=== PATIENT | female | born 1970 | race Asian ===

== ENCOUNTER 2024-02-19 21:05 | Inpatient (IN) | payer BC ==
[~2024-02-19] VITALS: Ht 172.7 cm; Wt 77.1 kg
[2024-02-19 21:24] VITALS: BP 106/63; PULSE 64; RESP 16; TEMP 98.1; O2SAT 99
[2024-02-19 22:12] LABS: BASOPHILS % (AUTO) 1.3 % (0.0-2.0); EOSINOPHILS % (AUTO) 0.2 % (0.0-4.0); HEMATOCRIT 34.9 % (36-48); HEMOGLOBIN 11.4 g/dL (12.0-16.0); LYMPHOCYTES # (AUTO) 0.1 K/uL (2.5-16.5); LYMPHOCYTES % (AUTO) 10.2 % (20.5-51.1); MEAN CORPUSCULAR HEMOGLOBIN 26 pg (27-31); MEAN CORPUSCULAR HGB CONC 33 g/dL (33-37); NEUTROPHILS # (AUTO) 0.6 K/uL (1.8-7.7); NEUTROPHILS % (AUTO) 86.3 % (42.2-75.2); PLATELET COUNT (AUTO) 198 K/uL (140-450); RED BLOOD CELL COUNT(AUTO) 4.47 MIL/uL (4.20-5.40); RED CELL DISTRIBUTION WIDTH 16.2 % (11.6-13.7)
[2024-02-19 22:15] LABS: WHITE BLOOD COUNT (AUTO) 0.7 K/uL (4.8-10.8)
[2024-02-19] MEDS ORDERED: MORPHINE SULFATE 4 MG/ML SYR ONE (22:34)
[2024-02-19 22:37] LABS: ALBUMIN 3.6 g/dL (3.4-5.0); ANION GAP 18.3 (8-16); CALCIUM 8.8 mg/dL (8.5-10.1); CARBON DIOXIDE 22.3 mmol/L (21-32); CREATININE 2.7 mg/dL (0.6-1.3); POTASSIUM 3.6 mmol/L (3.5-5.1); TOTAL BILIRUBIN 4.7 mg/dL (0.0-1.0); TOTAL PROTEIN, SERUM 7.9 g/dL (6.4-8.2)
[2024-02-19] MEDS: MORPHINE SULFATE 4 MG/ML SYR IVP ONE (22:38)
[2024-02-20] VITALS (18 sets, daily range): BP systolic 98–140; BP diastolic 55–94; PULSE 64–87; RESP 12–21; TEMP 97.3–98.4; O2SAT 95–100
[2024-02-20] MEDS ORDERED: PIPERACILLIN/TAZOBACTAM 3.375 GM VIAL IV ONE (00:48)
[2024-02-20] MEDS ORDERED: OMEP40EC23 PO (00:51)
[2024-02-20] MEDS ORDERED: GLIP5TER PO (00:51)
[2024-02-20] MEDS ORDERED: ATOR40TA PO (00:51)
[2024-02-20] MEDS ORDERED: METF-350 PO (00:51)
[2024-02-20] MEDS ORDERED: ISOS10TA9 PO (00:51)
[2024-02-20] MEDS ORDERED: AMLO10TA PO (00:51)
[2024-02-20] MEDS ORDERED: LOSA-272 PO (00:51)
[2024-02-20] MEDS: PIPERACILLIN/TAZOBACTAM 3.375 GM in DEXTROSE 5% 50 ML IV ONE (00:58)
[2024-02-20] MEDS: NACL 0.9% 1,000 ML IV ONE (00:58)
[2024-02-20] MEDS ORDERED: INSULIN LISPRO SLIDING SCALE 100 UNITS/ML VIAL SUBQ PRN (01:15)
[2024-02-20] MEDS ORDERED: MORPHINE SULFATE 2 MG/ML SYR IVP PRN (01:15)
[2024-02-20] MEDS: NACL 0.9% 2,000 ML IV ONE (01:28)
[2024-02-20] MEDS ORDERED: NOREPINEPHRINE 4 MG/4 ML VIAL IV ONE (02:25)
[2024-02-20] MEDS: DEXT 5% / NACL 0.45% 1,000 ML IV SCH (02:27)
[2024-02-20 02:53] LABS: APPEARANCE,URINE HAZY (CLEAR); COLOR,URINE AMBER (YELLOW)
[2024-02-20 02:54] LABS: PROTEIN,URINE 1+ (NEGATIVE); UGLUCOSE NEGATIVE (NEGATIVE)
[2024-02-20 02:55] LABS: BILIRUBIN,URINE NEGATIVE (NEGATIVE); BLOOD, URINE NEGATIVE (NEGATIVE); UROBILINOGEN,URINE 0.4 EU/dL (0.2 - 1)
[2024-02-20] MEDS: NOREPINEPHRINE 8 MG in DEXTROSE 5% 250 ML IV PRN (03:00)
[2024-02-20 03:06] LABS: LEUKOCYTE ESTERASE ,URINE 2+ (NEGATIVE); NITRITE, URINE POSITIVE (NEGATIVE); RBC,URINE 0-5 /HPF (0-5)
[2024-02-20 03:07] LABS: BACTERIA,URINE 10-30 (MOD) /HPF (None Seen); MUCUS,URINE 1+ /LPF (None Seen); SQUAMOUS EPITHELIAL CELL,UR 0-3 (FEW) /LPF (0-3 (FEW))
[2024-02-20 06:06] LABS: BASOPHILS % (AUTO) 0.1 % (0.0-2.0); EOSINOPHILS % (AUTO) 0.3 % (0.0-4.0); HEMATOCRIT 29.8 % (36-48); HEMOGLOBIN 9.8 g/dL (12.0-16.0); LYMPHOCYTES # (AUTO) 0.2 K/uL (2.5-16.5); LYMPHOCYTES % (AUTO) 1.8 % (20.5-51.1); MEAN CORPUSCULAR HEMOGLOBIN 26 pg (27-31); MEAN CORPUSCULAR HGB CONC 33 g/dL (33-37); MEAN CORPUSCULAR VOLUME 79.7 fL (80-94); MONOCYTES # (AUTO) 0.5 K/uL (0.8-1.0); MONOCYTES % (AUTO) 4.2 % (1.7-9.3); NEUTROPHILS % (AUTO) 93.6 % (42.2-75.2); PLATELET COUNT (AUTO) 182 K/uL (140-450); RED BLOOD CELL COUNT(AUTO) 3.74 MIL/uL (4.20-5.40); RED CELL DISTRIBUTION WIDTH 15.7 % (11.6-13.7); WHITE BLOOD COUNT (AUTO) 12.8 K/uL (4.8-10.8)
[2024-02-20] MEDS ORDERED: PIPERACILLIN/TAZOBACTAM 2.25 GM VIAL IV ONE (06:09)
[2024-02-20] MEDS: PIPERACILLIN/TAZOBACTAM 2.25 GM in DEXTROSE 5% 50 ML IV SCH (06:15)
[2024-02-20 06:19] LABS: ALBUMIN 2.8 g/dL (3.4-5.0); ANION GAP 15.1 (8-16); CALCIUM 7.4 mg/dL (8.5-10.1); CARBON DIOXIDE 23.8 mmol/L (21-32); CREATININE 2.9 mg/dL (0.6-1.3); POTASSIUM 3.9 mmol/L (3.5-5.1); THYROID STIMULATING HORMONE 0.8 uIU/mL (0.34-3.74); TOTAL PROTEIN, SERUM 6.4 g/dL (6.4-8.2)
[2024-02-20] MEDS: ONDANSETRON 4 MG/2 ML VIAL IVP PRN (06:23)
[2024-02-20 06:27] LABS: FLU B ANTIGEN NEGATIVE (NEGATIVE)
[2024-02-20 06:28] LABS: FLU A ANTIGEN POSITIVE (NEGATIVE)
[2024-02-20] MEDS ORDERED: VANCOMYCIN PER PHARMACY MC PRN (06:45)
[2024-02-20] MEDS ORDERED: VANCOMYCIN 1GM/DEXT 5% PREMIX 200 ML IV ONE (06:50)
[2024-02-20] MEDS ORDERED: NITROGLYCERIN 0.4 MG TAB SL PRN (07:50)
[2024-02-20 08:46] LABS: INR 1.13 (0.8-1.2); PROTHROMBIN TIME 11.8 secs (10.8-13.4)
[2024-02-20] MEDS ORDERED: OSELTAMIVIR PHOSPHATE 75 MG CAP PO SCH (09:00)
[2024-02-20] MEDS: ECOTRIN 81 MG TABEC PO SCH (09:00)
[2024-02-20] MEDS ORDERED: hePARIN / DEXT 5% PREMIX 250 ML IV SCH (09:15)
[2024-02-20] MEDS ORDERED: HEPARIN PER PHARMACY MC PRN (09:25)
[2024-02-20] MEDS: NACL 0.9% 1,000 ML IV SCH (09:32)
[2024-02-20] MEDS: PANTOPRAZOLE 40 MG INJ VIAL IVP SCH (09:32)
[2024-02-20] MEDS: VANCOMYCIN 1,000 MG in DEXTROSE 5% 250 ML IV SCH (09:33)
[2024-02-20] MEDS: OSELTAMIVIR PHOSPHATE 30 MG CAP PO SCH (09:33)
[2024-02-20] MEDS: ALBUMIN HUMAN 25% 100 ML IV SCH (09:38)
[2024-02-20] MEDS: hePARIN / DEXT 5% PREMIX 250 ML IV SCH (12:42)
[2024-02-20] MEDS: ATORVASTATIN 20 MG TAB PO SCH (16:41)
[2024-02-20 21:06] LABS: AMPHETAMINE, URINE NEGATIVE ng/ml (NEG <=1000); BARBITURATE, URINE NEGATIVE ng/ml (NEG <=200); BENZODIAZEPINE, URINE NEGATIVE ng/mL (NEG <=200); CANNABINOID, URINE NEGATIVE ng/mL (NEG <=50); COCAINE, URINE NEGATIVE ng/mL (NEG <=300); PHENCYCLIDINE SCREEN,URINE NEGATIVE ng/mL (NEG <=25)
[2024-02-20 21:07] LABS: OPIATE, URINE POSITIVE ng/mL (NEG <=2000)
[2024-02-21] VITALS (16 sets, daily range): BP systolic 103–159; BP diastolic 59–80; PULSE 61–83; RESP 11–18; TEMP 97.5–98.1; O2SAT 92–99
[2024-02-21 03:31] LABS: BASOPHILS % (AUTO) 0.4 % (0.0-2.0); EOSINOPHILS # (AUTO) 0.1 K/uL (0-0.4); HEMATOCRIT 27.9 % (36-48); HEMOGLOBIN 9.4 g/dL (12.0-16.0); LYMPHOCYTES # (AUTO) 0.7 K/uL (2.5-16.5); LYMPHOCYTES % (AUTO) 7.4 % (20.5-51.1); MEAN CORPUSCULAR HEMOGLOBIN 26 pg (27-31); MEAN CORPUSCULAR HGB CONC 34 g/dL (33-37); MEAN CORPUSCULAR VOLUME 77.3 fL (80-94); MONOCYTES # (AUTO) 0.4 K/uL (0.8-1.0); NEUTROPHILS # (AUTO) 7.6 K/uL (1.8-7.7); NEUTROPHILS % (AUTO) 86.2 % (42.2-75.2); PLATELET COUNT (AUTO) 172 K/uL (140-450); RED BLOOD CELL COUNT(AUTO) 3.61 MIL/uL (4.20-5.40); WHITE BLOOD COUNT (AUTO) 8.8 K/uL (4.8-10.8)
[2024-02-21 03:44] LABS: ANION GAP 14.1 (8-16); CALCIUM 7.3 mg/dL (8.5-10.1); CARBON DIOXIDE 22.2 mmol/L (21-32); CREATININE 1.9 mg/dL (0.6-1.3); POTASSIUM 3.3 mmol/L (3.5-5.1); TOTAL BILIRUBIN 2.5 mg/dL (0.0-1.0); TOTAL PROTEIN, SERUM 6.5 g/dL (6.4-8.2)
[2024-02-21 03:52] LABS: MAGNESIUM 1.3 mg/dL (1.8-2.4); PHOSPHORUS 2.7 mg/dL (2.5-4.9)
[2024-02-21] MEDS: POTASSIUM CHLORIDE 10 MEQ TABER PO PRN (04:10)
[2024-02-21] MEDS: MAG SULF 2000 MG/WATER PREMIX 50 ML IV ONE (04:32)
[2024-02-21] MEDS ORDERED: POTASSIUM CHLORIDE 10 MEQ TABER PO SCH (07:30)
[2024-02-21] MEDS: VANCOMYCIN 1,000 MG in DEXTROSE 5% 250 ML IV SCH (08:47)
[2024-02-21] MEDS: POTASSIUM CHLORIDE 10 MEQ TABER PO SCH (08:48)
[2024-02-21] MEDS ORDERED: HEPARIN PER PHARMACY MC SCH (09:00)
[2024-02-21] MEDS: BLOOD GLUCOSE MONITORING 1 DEV DEV FS SCH (11:38)
[2024-02-21] MEDS: MIDODRINE 5 MG TAB PO SCH (12:35)
[2024-02-22] VITALS (9 sets, daily range): BP systolic 127–147; BP diastolic 48–76; PULSE 63–104; RESP 12–32; TEMP 97.3–98.5; O2SAT 95–100
[2024-02-22 05:29] LABS: BASOPHILS # (AUTO) 0.1 K/uL (0.00-0.22); BASOPHILS % (AUTO) 1.6 % (0.0-2.0); EOSINOPHILS # (AUTO) 0.1 K/uL (0-0.4); EOSINOPHILS % (AUTO) 1.3 % (0.0-4.0); HEMATOCRIT 27.6 % (36-48); HEMOGLOBIN 9.2 g/dL (12.0-16.0); LYMPHOCYTES # (AUTO) 0.7 K/uL (2.5-16.5); LYMPHOCYTES % (AUTO) 9.4 % (20.5-51.1); MEAN CORPUSCULAR HEMOGLOBIN 26 pg (27-31); MEAN CORPUSCULAR HGB CONC 34 g/dL (33-37); MEAN CORPUSCULAR VOLUME 78.9 fL (80-94); MONOCYTES # (AUTO) 0.4 K/uL (0.8-1.0); MONOCYTES % (AUTO) 5.2 % (1.7-9.3); NEUTROPHILS # (AUTO) 6.2 K/uL (1.8-7.7); NEUTROPHILS % (AUTO) 82.5 % (42.2-75.2); PLATELET COUNT (AUTO) 191 K/uL (140-450); RED BLOOD CELL COUNT(AUTO) 3.49 MIL/uL (4.20-5.40); RED CELL DISTRIBUTION WIDTH 16.1 % (11.6-13.7); WHITE BLOOD COUNT (AUTO) 7.5 K/uL (4.8-10.8)
[2024-02-22 06:26] LABS: ALBUMIN 3.4 g/dL (3.4-5.0); ANION GAP 16.1 (8-16); CALCIUM 8.1 mg/dL (8.5-10.1); CARBON DIOXIDE 21.4 mmol/L (21-32); CREATININE 1.1 mg/dL (0.6-1.3); POTASSIUM 3.5 mmol/L (3.5-5.1); TOTAL BILIRUBIN 1.3 mg/dL (0.0-1.0); TOTAL PROTEIN, SERUM 6.8 g/dL (6.4-8.2)
[2024-02-22 06:47] LABS: MAGNESIUM 1.8 mg/dL (1.8-2.4); PHOSPHORUS 1.7 mg/dL (2.5-4.9)
[2024-02-22] MEDS: VANCOMYCIN 1.25GM PREMIX 250 ML IV SCH (09:56)
[2024-02-23] VITALS: BP 139/66; PULSE 73; PULSE 85; RESP 20; TEMP 97.1; O2SAT 97
[2024-02-23 04:00] VITALS: BP 136/72; PULSE 61; PULSE 89; RESP 19; TEMP 97; O2SAT 98
[2024-02-23 07:19] LABS: HEMOGLOBIN 9.5 g/dL (12.0-16.0); WHITE BLOOD COUNT (AUTO) 5.3 K/uL (4.8-10.8)
[2024-02-23 07:39] LABS: ALBUMIN 3.2 g/dL (3.4-5.0); ANION GAP 13.2 (8-16); CALCIUM 8.4 mg/dL (8.5-10.1); CARBON DIOXIDE 23.7 mmol/L (21-32); CREATININE 0.8 mg/dL (0.6-1.3); POTASSIUM 3.9 mmol/L (3.5-5.1)
[2024-02-23 07:40] LABS: INR 0.96 (0.8-1.2); PARTIAL THROMBOPLASTIN TIME 34.9 secs (22-35.6); PROTHROMBIN TIME 10.1 secs (10.8-13.4)
[2024-02-23 07:41] LABS: HEMATOCRIT 28.8 % (36-48); MEAN CORPUSCULAR HEMOGLOBIN 26 pg (27-31); MEAN CORPUSCULAR HGB CONC 33 g/dL (33-37); MEAN CORPUSCULAR VOLUME 78.3 fL (80-94); PLATELET COUNT (AUTO) 231 K/uL (140-450); RED BLOOD CELL COUNT(AUTO) 3.68 MIL/uL (4.20-5.40); RED CELL DISTRIBUTION WIDTH 16.2 % (11.6-13.7)
[2024-02-23 07:54] LABS: MAGNESIUM 1.5 mg/dL (1.8-2.4); PHOSPHORUS 2.1 mg/dL (2.5-4.9)
[2024-02-23 08:00] VITALS: BP 145/60; PULSE 71; PULSE 75; PULSE 89; RESP 18; TEMP 97.6; O2SAT 97
[2024-02-23 08:10] LABS: MONOCYTES % (MANUAL) 8 % (5-12)
[2024-02-23 08:11] LABS: BASOPHILS % (MANUAL) 0 % (0-2); EOSINOPHILS % (MANUAL) 1 % (0-4); LYMPHOCYTES % (MANUAL) 28 % (20-46)
[2024-02-23] MEDS: VANCOMYCIN 1.25GM PREMIX 250 ML IV SCH (09:35)
[2024-02-23] MEDS: AMPICILLIN/SULBACTAM 1.5 GM in NACL 0.9% 50 ML IV SCH (11:36)
[2024-02-23 12:00] VITALS: BP 160/78; PULSE 63; PULSE 67; RESP 18; TEMP 97.7; O2SAT 97
[2024-02-23] MEDS: MAG SULF 2000 MG/WATER PREMIX 50 ML IV SCH (12:25)
[2024-02-23] MEDS: hydrALAZINE 20 MG/ML VIAL IVP PRN (14:55)
[2024-02-23 16:00] VITALS: BP 153/75; PULSE 68; PULSE 78; RESP 18; TEMP 98.1; O2SAT 100
[2024-02-23 20:00] VITALS: BP 148/72; PULSE 70; PULSE 75; RESP 18; TEMP 97.8; O2SAT 98
[2024-02-23] MEDS: carvediloL 6.25 MG TAB PO SCH (21:15)
[2024-02-24] VITALS: BP 144/78; PULSE 57; PULSE 59; RESP 18; TEMP 97.4; O2SAT 98
[2024-02-24 04:00] VITALS: BP 148/73; PULSE 65; PULSE 67; RESP 18; TEMP 97.1; O2SAT 97
[2024-02-24 06:56] LABS: BASOPHILS # (AUTO) 0.1 K/uL (0.00-0.22); HEMOGLOBIN 9.1 g/dL (12.0-16.0); LYMPHOCYTES # (AUTO) 1.7 K/uL (2.5-16.5); MONOCYTES # (AUTO) 0.7 K/uL (0.8-1.0); NEUTROPHILS # (AUTO) 3.2 K/uL (1.8-7.7)
[2024-02-24 07:07] LABS: BASOPHILS % (AUTO) 1.3 % (0.0-2.0); EOSINOPHILS # (AUTO) 0.2 K/uL (0-0.4); EOSINOPHILS % (AUTO) 4.1 % (0.0-4.0); HEMATOCRIT 27.3 % (36-48); LYMPHOCYTES % (AUTO) 28.4 % (20.5-51.1); MEAN CORPUSCULAR HEMOGLOBIN 26 pg (27-31); MEAN CORPUSCULAR HGB CONC 34 g/dL (33-37); MEAN CORPUSCULAR VOLUME 77.7 fL (80-94); MONOCYTES % (AUTO) 12.2 % (1.7-9.3); PLATELET COUNT (AUTO) 229 K/uL (140-450); RED BLOOD CELL COUNT(AUTO) 3.51 MIL/uL (4.20-5.40); RED CELL DISTRIBUTION WIDTH 15.7 % (11.6-13.7)
[2024-02-24 07:23] LABS: ANION GAP 13.3 (8-16); CALCIUM 8.3 mg/dL (8.5-10.1); CARBON DIOXIDE 24.7 mmol/L (21-32); CREATININE 0.7 mg/dL (0.6-1.3); TOTAL BILIRUBIN 0.7 mg/dL (0.0-1.0); TOTAL PROTEIN, SERUM 6.5 g/dL (6.4-8.2)
[2024-02-24 07:29] LABS: MAGNESIUM 1.4 mg/dL (1.8-2.4); PHOSPHORUS 2.4 mg/dL (2.5-4.9)
[2024-02-24 08:00] VITALS: BP 149/74; PULSE 65; PULSE 67; PULSE 70; RESP 18; TEMP 97.6; TEMP 97.9; O2SAT 98
[2024-02-24] MEDS: ATORVASTATIN 20 MG TAB PO SCH (09:20)
[2024-02-24] MEDS: POTASSIUM CHLORIDE 10 MEQ TABER PO SCH ×2 (11:21→14:30)
[2024-02-24] MEDS: MAG SULF 2000 MG/WATER PREMIX 50 ML IV SCH (11:22)
[2024-02-24] MEDS: MAGNESIUM OXIDE 400 MG TAB PO ONE (11:22)
[2024-02-24 12:00] VITALS: BP 136/72; PULSE 76; PULSE 81; RESP 18; TEMP 97.8; O2SAT 98
[2024-02-24 16:00] VITALS: BP 149/65; PULSE 72; PULSE 80; RESP 18; TEMP 98.2; O2SAT 99
[2024-02-24 20:00] VITALS: BP 166/87; PULSE 66; PULSE 75; RESP 18; TEMP 97.8; O2SAT 99
[2024-02-25] VITALS (7 sets, daily range): BP systolic 145–173; BP diastolic 62–83; PULSE 59–92; RESP 16–19; TEMP 97.1–98.3; O2SAT 94–99
[2024-02-25 06:54] LABS: BASOPHILS # (AUTO) 0.1 K/uL (0.00-0.22); BASOPHILS % (AUTO) 1.4 % (0.0-2.0); EOSINOPHILS # (AUTO) 0.3 K/uL (0-0.4); HEMATOCRIT 27.7 % (36-48); HEMOGLOBIN 9.3 g/dL (12.0-16.0); LYMPHOCYTES # (AUTO) 1.7 K/uL (2.5-16.5); LYMPHOCYTES % (AUTO) 26.8 % (20.5-51.1); MEAN CORPUSCULAR HEMOGLOBIN 26 pg (27-31); MEAN CORPUSCULAR HGB CONC 34 g/dL (33-37); MEAN CORPUSCULAR VOLUME 77.6 fL (80-94); MONOCYTES # (AUTO) 0.7 K/uL (0.8-1.0); MONOCYTES % (AUTO) 10.2 % (1.7-9.3); NEUTROPHILS # (AUTO) 3.7 K/uL (1.8-7.7); NEUTROPHILS % (AUTO) 56.6 % (42.2-75.2); PLATELET COUNT (AUTO) 291 K/uL (140-450); RED BLOOD CELL COUNT(AUTO) 3.57 MIL/uL (4.20-5.40); RED CELL DISTRIBUTION WIDTH 16.1 % (11.6-13.7); WHITE BLOOD COUNT (AUTO) 6.5 K/uL (4.8-10.8)
[2024-02-25 07:13] LABS: ANION GAP 15.8 (8-16); CALCIUM 8.5 mg/dL (8.5-10.1); CARBON DIOXIDE 23.6 mmol/L (21-32); CREATININE 0.7 mg/dL (0.6-1.3); POTASSIUM 3.4 mmol/L (3.5-5.1); TOTAL BILIRUBIN 0.8 mg/dL (0.0-1.0); TOTAL PROTEIN, SERUM 6.7 g/dL (6.4-8.2)
[2024-02-25 07:21] LABS: MAGNESIUM 1.4 mg/dL (1.8-2.4); PHOSPHORUS 3.2 mg/dL (2.5-4.9)
[2024-02-25] MEDS: MAGNESIUM OXIDE 400 MG TAB PO PRN (09:32)
[2024-02-25] MEDS: LOSARTAN 25 MG TAB PO SCH (10:50)
[2024-02-26] VITALS (9 sets, daily range): BP systolic 132–164; BP diastolic 69–77; PULSE 63–78; RESP 18; TEMP 97.7–98.1; O2SAT 95–100
[2024-02-26 06:50] LABS: BASOPHILS # (AUTO) 0.1 K/uL (0.00-0.22); BASOPHILS % (AUTO) 1.1 % (0.0-2.0); EOSINOPHILS # (AUTO) 0.3 K/uL (0-0.4); EOSINOPHILS % (AUTO) 4.4 % (0.0-4.0); HEMATOCRIT 29.1 % (36-48); HEMOGLOBIN 9.9 g/dL (12.0-16.0); LYMPHOCYTES # (AUTO) 1.8 K/uL (2.5-16.5); LYMPHOCYTES % (AUTO) 23.7 % (20.5-51.1); MEAN CORPUSCULAR HEMOGLOBIN 26 pg (27-31); MEAN CORPUSCULAR HGB CONC 34 g/dL (33-37); MEAN CORPUSCULAR VOLUME 77.1 fL (80-94); MONOCYTES # (AUTO) 0.7 K/uL (0.8-1.0); MONOCYTES % (AUTO) 9.6 % (1.7-9.3); NEUTROPHILS # (AUTO) 4.6 K/uL (1.8-7.7); NEUTROPHILS % (AUTO) 61.2 % (42.2-75.2); PLATELET COUNT (AUTO) 330 K/uL (140-450); RED BLOOD CELL COUNT(AUTO) 3.78 MIL/uL (4.20-5.40); RED CELL DISTRIBUTION WIDTH 16.1 % (11.6-13.7); WHITE BLOOD COUNT (AUTO) 7.5 K/uL (4.8-10.8)
[2024-02-26 07:11] LABS: ALBUMIN 3.1 g/dL (3.4-5.0); ANION GAP 14.7 (8-16); CALCIUM 8.7 mg/dL (8.5-10.1); CARBON DIOXIDE 25.5 mmol/L (21-32); CREATININE 0.8 mg/dL (0.6-1.3); POTASSIUM 3.2 mmol/L (3.5-5.1); TOTAL BILIRUBIN 0.8 mg/dL (0.0-1.0)
[2024-02-26] MEDS: LOSARTAN 25 MG TAB PO SCH (08:20)
[2024-02-26] MEDS: ACETAMINOPHEN 325 MG TAB PO PRN (21:06)
[2024-02-27] VITALS: BP 134/57; PULSE 65; RESP 17; TEMP 98.1; O2SAT 95
[2024-02-27 03:59] VITALS: PULSE 65
[2024-02-27 04:00] VITALS: BP 145/68; PULSE 69; RESP 18; TEMP 97.9; O2SAT 97
[2024-02-27 04:20] LABS: BASOPHILS # (AUTO) 0.1 K/uL (0.00-0.22); BASOPHILS % (AUTO) 1.1 % (0.0-2.0); EOSINOPHILS # (AUTO) 0.3 K/uL (0-0.4); HEMATOCRIT 27.4 % (36-48); HEMOGLOBIN 9.2 g/dL (12.0-16.0); LYMPHOCYTES # (AUTO) 2.1 K/uL (2.5-16.5); LYMPHOCYTES % (AUTO) 21.5 % (20.5-51.1); MEAN CORPUSCULAR HEMOGLOBIN 26 pg (27-31); MEAN CORPUSCULAR HGB CONC 34 g/dL (33-37); MEAN CORPUSCULAR VOLUME 77.7 fL (80-94); MONOCYTES # (AUTO) 0.8 K/uL (0.8-1.0); MONOCYTES % (AUTO) 8.2 % (1.7-9.3); NEUTROPHILS # (AUTO) 6.5 K/uL (1.8-7.7); NEUTROPHILS % (AUTO) 66.2 % (42.2-75.2); PLATELET COUNT (AUTO) 344 K/uL (140-450); RED BLOOD CELL COUNT(AUTO) 3.53 MIL/uL (4.20-5.40); WHITE BLOOD COUNT (AUTO) 9.9 K/uL (4.8-10.8)
[2024-02-27 04:52] LABS: ALBUMIN 3.1 g/dL (3.4-5.0); ANION GAP 15.7 (8-16); CALCIUM 8.7 mg/dL (8.5-10.1); CARBON DIOXIDE 24.1 mmol/L (21-32); CREATININE 0.9 mg/dL (0.6-1.3); POTASSIUM 3.8 mmol/L (3.5-5.1); TOTAL BILIRUBIN 0.8 mg/dL (0.0-1.0); TOTAL PROTEIN, SERUM 6.8 g/dL (6.4-8.2)
[2024-02-27 08:00] VITALS: BP 151/71; PULSE 64; PULSE 71; PULSE 76; RESP 18; TEMP 98; O2SAT 98
== END 2024-02-27 11:40 | DRG 871 ==
LOC: MED 21:05 → MTU 02-20 01:15 → MIC 02-20 07:26 → MTU 02-22 07:05
PROVIDERS: ADMIT Student in an Organized Health Care Education/Training Program; ATTEND Student in an Organized Health Care Education/Training Program
DX: A41.89 Other specified sepsis (principal); I21.A1 Myocardial infarction type 2; N17.0 Acute kidney failure with tubular necrosis; R65.21 Severe sepsis with septic shock; K80.42 Calculus of bile duct with acute cholecystitis without obstruction; N39.0 Urinary tract infection, site not specified; E44.0 Moderate protein-calorie malnutrition; E87.1 Hypo-osmolality and hyponatremia; E66.9 Obesity, unspecified; R74.01 Elevation of levels of liver transaminase levels; D72.819 Decreased white blood cell count, unspecified; J09.X2 Influenza due to identified novel influenza A virus with other respiratory manifestations; E87.6 Hypokalemia; E78.5 Hyperlipidemia, unspecified; I12.9 Hypertensive chronic kidney disease with stage 1 through stage 4 chronic kidney disease, or unspecified chronic kidney disease; Z20.822 Contact with and (suspected) exposure to COVID-19; E88.09 Other disorders of plasma-protein metabolism, not elsewhere classified; N18.9 Chronic kidney disease, unspecified; E11.22 Type 2 diabetes mellitus with diabetic chronic kidney disease; D50.9 Iron deficiency anemia, unspecified; Z79.899 Other long term (current) drug therapy; Z68.25 Body mass index [BMI] 25.0-25.9, adult
CPT/HCPCS: 36415; 36556; 71045; 76705; 76770; 78445; 80053; 80202; 80305; 81001; 82948; 83690; 83735; 83880; 84100; 84443; 84484; 85025; 85610; 85730; 87040; 87081; 87086; 93005; 96361; 96365; 96375; 99291; C1751; J0295; J0360; J1644; J1815; J2270; J2405; J2470; J2543; J3370; J3372; J3475; J3490; J7060; P9046; Q0092